=== PATIENT | female | born 1995 | race Caucasian/White ===

== ENCOUNTER 2018-03-14 05:34 | Emergency (ER) | payer BC, OTHER ==
[2018-03-14] MEDS ORDERED: Diphtheria,Pertussis(Acell),Tetanus Vaccine 0.5 ML Syringe IM ONE (05:48)
--- NOTE | 2018-03-14 06:34 | EDM.PDOC ---
ED HPI GENERAL MEDICAL PROBLEM - General Chief Complaint: Laceration Stated Complaint: laceration Time Seen by Provider: 03/14/18 05:35 Source of Information: Reports: Patient History Limitations: Reports: No Limitations - History of Present Illness INITIAL COMMENTS - FREE TEXT/NARRATIVE: Pt. accidentally cut herself with a knife. Will need tetanus update. Denies any decreased ROM distal to the area of injury and the injury is isolated to the palm of the L hand. Onset: Today Location: Reports: Upper Extremity, Left Left Hand Pain Score (Numeric/FACES): 4 - Related Data Allergies Allergy/AdvReac Type Severity Reaction Status Date / Time No Known Allergies Allergy Verified 03/14/18 05:35 Home Meds: Home Meds . [No Known Home Meds] 03/14/18 [History] Past Medical History - Past Surgical History HEENT Surgical History: Reports: Adenoidectomy, Oral Surgery, Tonsillectomy Social & Family History - Tobacco Use Smoking Status *Q: Never Smoker - Recreational Drug Use Recreational Drug Use: No ED ROS GENERAL - Review of Systems Review Of Systems: ROS reveals no pertinent complaints other than HPI. ED EXAM, SKIN/RASH Exam: See Below Exam Limited By: No Limitations General Appearance: Alert, WD/WN, No Apparent Distress Extremities: Normal Range of Motion, Other (2.5 cm laceration noted to L thenar emminence) Neurological: Alert, Oriented, CN II-XII Intact, Normal Cognition, Normal Gait, Normal Reflexes, No Motor/Sensory Deficits Skin: Warm, Dry, Intact, Normal Color, No Rash ED SKIN PROCEDURES - Laceration/Wound Repair Left Hand Lac/Wound length In cm: 2.5 Appearance: Superficial Distal NVT: Neuro & Vascular Intact, No Tendon Injury Anesthetic Type: Local Local Anesthesia - Lidocaine (Xylocaine): 1% Plain Local Anesthetic Volume: Other (10 ml.) Exploration/Debridement/Repair: Wound Explored, Explored to Base Closed with: Sutures Suture Size: 4-0 Suture Type: Nylon Course - Vital Signs Last Recorded V/S: Last Vital Signs Temp 36.4 C 03/14/18 05:35 Pulse 92 03/14/18 05:35 Resp 18 03/14/18 05:35 BP 140/78 03/14/18 05:35 Pulse Ox 100 03/14/18 05:35 - Orders/Labs/Meds Orders: Active Orders 24 hr Category Date Time Status Vaccines to be Administered [RC] PER UNIT ROUTINE Care 03/14/18 05:48 Active Meds: Medications Discontinued Medications Generic Name Dose Route Start Last Admin Trade Name Irlanda PRN Reason Stop Dose Admin Diphtheria/Tetanus/Acell Pertussis 0.5 ml 03/14/18 05:48 03/14/18 05:55 Adacel IM 03/14/18 05:49 0.5 ml .ONCE ONE Administration Lidocaine HCl 5 ml 03/14/18 05:47 03/14/18 05:51 Xylocaine-Mpf 1% INJECT 03/14/18 05:48 5 ml ONETIME ONE Administration Lidocaine HCl 5 ml 03/14/18 06:02 03/14/18 06:06 Xylocaine-Mpf 1% INJECT 03/14/18 06:03 5 ml ONETIME ONE Administration Departure - Departure Time of Disposition: 06:30 Disposition: Home, Self-Care 01 Condition: Good Clinical Impression: Laceration - Discharge Information Instructions: Laceration Care, Adult Referrals: PCP,Unobtain [Primary Care Provider] - Forms: ED Department Discharge Additional Instructions: Sutures out in 10 days in the clinic. Keep covered and dry for 24 hours. If you do not anticipate the cut getting dirty, keep open to the air. Return to ER of follow-up in clinic if redness, swelling, or discharge. - My Orders Last 24 Hours: My Active Orders 03/14/18 05:48 Vaccines to be Administered [RC] PER UNIT ROUTINE - Assessment/Plan Last 24 Hours: My Active Orders 03/14/18 05:48 Vaccines to be Administered [RC] PER UNIT ROUTINE
== END 2018-03-14 06:28 | disposition home or self-care (01) ==
LOC: VM.ED 05:34
DX: S61.412A Laceration without foreign body of left hand, initial encounter (principal); Z23 Encounter for immunization; W26.0XXA Contact with knife, initial encounter
CPT/HCPCS: 12001; 12002; 90471; 90715; 99283